=== PATIENT | female | born 1990 | race American Indian/Alaskan Native ===

== ENCOUNTER 2019-11-04 08:03 | Emergency (ER) | payer MEDICAID ==
[2019-11-04 08:19] VITALS: BP 117/74
--- NOTE | 2019-11-04 09:04 | Emergency Department Report ---
ED Female HPI - General Chief complaint: Vaginal Bleeding Stated complaint: HEMORRHAGING Time Seen by Provider: 11/04/19 08:57 Source: patient Mode of arrival: Ambulatory Limitations: No Limitations - History of Present Illness Initial comments: Very pleasant 29-year-old female presents emergency department chief complaint of heavy vaginal bleeding since her menstrual cycle started 7 days ago. She reports some associated lower abdominal cramping that she rates as a 6 out of 10. She denies any known past medical history, current medication use or known allergies to medications. She denies any previous surgeries. She states her menstrual cycles are very regular and this was a regular time for it to start 1 week ago. States the difference is usually her menstrual cycle will be heavy the first few days and then lighten up throughout the week but it seems to be getting heavier now and she has some clotting with the bleeding. She denies any associated fever, chills, night sweats, headache, dizziness, blurry vision, nausea, vomiting, diarrhea, chest pain, shortness of breath. - Related Data Previous Rx's Medication Instructions Recorded Last Taken Type Ibuprofen [Motrin] 600 mg PO Q8H PRN #30 tablet 12/20/15 Unknown Rx Ibuprofen [Motrin 800 MG tab] 800 mg PO Q8HR PRN #30 tablet 11/04/19 Unknown Rx Allergies Allergy/AdvReac Type Severity Reaction Status Date / Time No Known Allergies Allergy Unverified 12/20/15 09:45 ED Review of Systems ROS: Stated complaint: HEMORRHAGING Other details as noted in HPI Comment: All other systems reviewed and negative Constitutional: denies: chills, fever Eyes: denies: eye pain, eye discharge, vision change ENT: denies: ear pain, throat pain Respiratory: denies: cough, shortness of breath, wheezing Cardiovascular: denies: chest pain, palpitations Endocrine: no symptoms reported Gastrointestinal: as per HPI, abdominal pain. denies: nausea, diarrhea Genitourinary: as per HPI, abnormal menses. denies: urgency, dysuria, discharge Musculoskeletal: denies: back pain, joint swelling, arthralgia Skin: denies: rash, lesions Neurological: denies: headache, weakness, paresthesias Psychiatric: denies: anxiety, depression Hematological/Lymphatic: denies: easy bleeding, easy bruising ED Past Medical Hx - Past Medical History Previous Medical History?: No - Social History Smoking Status: Never Smoker Substance Use Type: None - Medications Home Medications: Home Medications Medication Instructions Recorded Confirmed Last Taken Type Ibuprofen [Motrin] 600 mg PO Q8H PRN #30 tablet 12/20/15 Unknown Rx Ibuprofen [Motrin 800 MG tab] 800 mg PO Q8HR PRN #30 tablet 11/04/19 Unknown Rx ED Physical Exam - General Limitations: No Limitations General appearance: alert, in no apparent distress - Head Head exam: Present: atraumatic, normocephalic - Eye Eye exam: Present: normal appearance, PERRL, EOMI Pupils: Present: normal accommodation - ENT ENT exam: Present: normal exam, normal orophraynx, mucous membranes moist - Neck Neck exam: Present: normal inspection, full ROM. Absent: tenderness, meningismus - Respiratory Respiratory exam: Present: normal lung sounds bilaterally. Absent: respiratory distress, wheezes, rales, rhonchi, stridor - Cardiovascular Cardiovascular Exam: Present: regular rate, normal rhythm, normal heart sounds. Absent: systolic murmur, diastolic murmur, rubs, gallop - GI/Abdominal GI/Abdominal exam: Present: soft, tenderness (Mild suprapubic tenderness palpation, negative rebound tenderness, negative psoas and obturator sign bilaterally. Negative McBurney's point tenderness, negative Brown sign, no CVA tenderness bilaterally.), normal bowel sounds. Absent: distended, guarding, rebound, rigid - Extremities Exam Extremities exam: Present: normal inspection, full ROM, normal capillary refill. Absent: tenderness, calf tenderness - Back Exam Back exam: Present: normal inspection, full ROM. Absent: tenderness, CVA ten derness (R), CVA tenderness (L), muscle spasm - Neurological Exam Neurological exam: Present: alert, oriented X3, CN II-XII intact, normal gait. Absent: motor sensory deficit - Psychiatric Psychiatric exam: Present: normal affect, normal mood - Skin Skin exam: Present: warm, dry, intact, normal color. Absent: rash ED Course Vital Signs 11/04/19 08:12 Temperature 98.4 F Pulse Rate 67 Respiratory 18 Rate Blood Pressure 117/74 O2 Sat by Pulse 100 Oximetry ED Medical Decision Making - Lab Data Result diagrams: 11/04/19 08:59 11/04/19 08:59 Lab Results 11/04/19 11/04/19 11/04/19 Range/Units 08:59 08:59 09:24 WBC 4.8 (4.5-11.0) K/mm3 RBC 4.12 (3.65-5.03) M/mm3 Hgb 12.0 (10.1-14.3) gm/dl Hct 36.7 (30.3-42.9) % MCV 89 (79-97) fl MCH 29 (28-32) pg MCHC 33 (30-34) % RDW 16.2 H (13.2-15.2) % Plt Count 239 (140-440) K/mm3 Lymph % (Auto) 30.5 (13.4-35.0) % [place] % (Auto) 6.0 (0.0-7.3) % Eos % (Auto) 3.9 (0.0-4.3) % Baso % (Auto) 0.7 (0.0-1.8) % Lymph # (Auto) 1.5 (1.2-5.4) K/mm3 [place] # (Auto) 0.3 (0.0-0.8) K/mm3 Eos # (Auto) 0.2 (0.0-0.4) K/mm3 Baso # (Auto) 0.0 (0.0-0.1) K/mm3 Seg Neutrophils % 58.9 (40.0-70.0) % Seg Neutrophils # 2.8 (1.8-7.7) K/mm3 Sodium 140 (137-145) mmol/L Potassium 3.9 (3.6-5.0) mmol/L Chloride 101.9 (98-107) mmol/L Carbon Dioxide 26 (22-30) mmol/L Anion Gap 16 mmol/L BUN 12 (7-17) mg/dL Creatinine 0.7 (0.6-1.2) mg/dL Estimated GFR > 60 ml/min BUN/Creatinine Ratio 17 % Glucose 101 H (65-100) mg/dL Calcium 9.4 (8.4-10.2) mg/dL Total Bilirubin 0.70 (0.1-1.2) mg/dL AST 14 (5-40) units/L ALT 9 (7-56) units/L Alkaline Phosphatase 53 (35-129) units/L Total Protein 7.0 (6.3-8.2) g/dL Albumin 4.2 (3.9-5) g/dL Albumin/Globulin Ratio 1.5 % Urine Color TNR Urine Turbidity TNR Urine pH TNR Ur Specific [place] TNR Urine Protein TNR Urine Glucose (UA) TNR Urine Ketones TNR Urine Blood TNR Urine Nitrite TNR Ur Reducing Substances TNR Urine Bilirubin TNR Urine Ictotest TNR Urine Urobilinogen TNR Ur Leukocyte Esterase TNR Urine WBC (Auto) TNR Urine RBC (Auto) TNR U Epithel Cells (Auto) 3.0 (0-13.0) /HPF Urine HCG, Qual Negative (Negative) - Medical Decision Making Patient is hemodynamically stable and in no acute distress. Vital signs are stable. Abdominal exam is relatively benign. H&H was normal and test was negative. Patient was given outpatient [facility] referral, high-dose anti- inflammatories and recommend return the emerge department change worsening symptoms such as dizziness, near-syncope, or severe abdominal pain. She verbalized understanding the diagnosis, treatment plan and follow-up instruction all of her questions were answered. - Differential Diagnosis menorrhagia, fibroids, ectopic Critical care attestation.: If time is entered above; I have spent that time in minutes in the direct care of this critically ill patient, excluding procedure time. ED Disposition Clinical Impression: Dysfunctional uterine bleeding Disposition: TO HOME OR SELFCARE Is pt being admited?: No Condition: Stable Instructions: Dysfunctional Uterine Bleeding (ED) Prescriptions: Ibuprofen [Motrin 800 MG tab] 800 mg PO Q8HR PRN #30 tablet PRN Reason: Pain , Severe (7-10) Referrals: [facility]ERNANDES [Other] - 3-5 Days OLAMIDE NAVAS MD [Staff Physician] - 3-5 Days Time of Disposition: 10:43
[2019-11-04 09:23] LABS: Basophils % (Auto) 0.7 % (0.0-1.8); Eosinophils # (Auto) 0.2 K/mm3 (0.0-0.4); Eosinophils % (Auto) 3.9 % (0.0-4.3); Hematocrit 36.7 % (30.3-42.9); Lymphocytes # (Auto) 1.5 K/mm3 (1.2-5.4); Lymphocytes % (Auto) 30.5 % (13.4-35.0); Mean Corpuscular HGB Conc 33 % (30-34); Mean Corpuscular Volume 89 fl (79-97); Monocytes # (Auto) 0.3 K/mm3 (0.0-0.8); Platelet Count 239 K/mm3 (140-440); Red Blood Count 4.12 M/mm3 (3.65-5.03); Red Cell Distribution Width 16.2 % (13.2-15.2)
[2019-11-04 09:46] LABS: Alanine Aminotransferase 9 units/L (7-56); Albumin 4.2 g/dL (3.9-5); Blood Urea Nitrogen 12 mg/dL (7-17); Calcium 9.4 mg/dL (8.4-10.2); Hemolysis Index 3
[2019-11-04 09:53] LABS: BUN/Creatinine Ratio 17
[2019-11-04 10:22] LABS: HCG Qualitative,Urine Negative (Negative)
[2019-11-04 10:35] LABS: Bilirubin,Urine TNR (Negative); Blood,Urine TNR (Negative); Color,Urine TNR (Yellow); PH,Urine TNR (5.0-7.0); Protein,Urine TNR mg/dL (Negative); Urobilinogen,Urine TNR mg/dL (<2.0)
[2019-11-04 10:36] LABS: Ictotest,Urine TNR (Negative)
[2019-11-04 10:39] LABS: Mucus,Urine FEW /HPF
[2019-11-04 10:58] LABS: RBC,Urine > 182.0 /HPF (0.0-6.0)
== END 2019-11-04 10:50 | disposition home or self-care (01) ==
LOC: ED 08:03
DX: N93.8 Other specified abnormal uterine and vaginal bleeding (principal); Z79.1 Long term (current) use of non-steroidal anti-inflammatories (NSAID)
CPT/HCPCS: 36415; 80053; 81001; 81025; 85025; 87086

== ENCOUNTER 2020-01-25 15:18 | Emergency (ER) | payer MEDICAID ==
[2020-01-25 16:49] VITALS: BP 114/72
[2020-01-25] MEDS ORDERED: TETRACAINE 0.5% OPHTH SOLN 4ML OU ONE (17:49)
[2020-01-25] MEDS ORDERED: FLUORESCEIN 1 MG STRIP OP ONE (17:49)
[2020-01-26] MEDS ORDERED: FLUORESCEIN 1 MG STRIP OP ONE (03:32)
[2020-01-26] MEDS ORDERED: TETRACAINE 0.5% OPHTH SOLN 4ML OU ONE (03:32)
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
== END 2020-01-26 07:05 | disposition home or self-care (01) ==
LOC: ED 15:18
DX: H10.9 Unspecified conjunctivitis (principal)
CPT/HCPCS: 99282